=== PATIENT | female | born 1945 | race Caucasian/White ===

== ENCOUNTER → 2016-12-31 | Outpatient (CLI) | payer MEDICARE, BC ==
[~2016-12-31] MED LIST: 3N1 COMMODE MC; ASPI-781 PO; ATOR20TA38 PO; BEN25 PO; CIPR500T4 PO; CLON0.5T4 PO; CPM MC; DIVA250T12 PO; DOCU-144 PO; DULR PR; LAMO25TA PO; LEVO200T6 PO; MIRT30TA5 PO; NA P133E3 PR; OLAN5TAB36 PO; OXYC-481 PO; QUET400T11 PO; QUET50TA22 PO; RANI150T9 PO; TRAM50TA2 PO; UDMOM PO; VALS160T20 PO; WALK1EAC23 MC
--- NOTE | 2016-12-31 11:42 | RADRPT ---
PROCEDURE: XR right knee . CLINICAL INDICATION: Knee pain TECHNIQUE: AP weightbearing, lateral weightbearing and sunrise views are available for review. COMPARISON: 06/18/2016 FINDINGS: There is a total knee replacement. There is no evidence of loosening of the prosthesis. The osseous structures are normal in mineralization, architecture and alignment No acute fracture or dislocation is seen.No osseous lesions are identified. The soft tissues are unremarkable . there is no change i n the small suprapatellar joint effusion IMPRESSION: Unremarkable total knee replacement. Small suprapatellar joint effusion Unchanged from the previous examination RPTAT: [facility] .Alber Matthews MD, MD Date Time Electronically viewed and signed by .Alber Matthews MD, MD on 12/31/2016 11:42 .B/
== END | disposition home or self-care (01) ==
LOC: HKI 10:24
PROVIDERS: ATTEND Orthopaedic Surgery
DX: T84.84XA Pain due to internal orthopedic prosthetic devices, implants and grafts, initial encounter (principal); G89.18 Other acute postprocedural pain; Z96.651 Presence of right artificial knee joint; Z96.641 Presence of right artificial hip joint
CPT/HCPCS: 73562; G0463

== ENCOUNTER → 2017-02-15 | Outpatient (CLI) | payer MEDICARE, BC ==
[~2017-02-15] MED LIST changes: +BISA10SU75 PR; -DULR PR
--- NOTE | 2017-02-15 15:34 | RADRPT ---
PROCEDURE: Three-phase bone scan study CLINICAL INDICATION: 71 -year-old patient with right knee replacement, complaining of right knee p ain. TECHNIQUE: Following the intravenous injection of 24.9 mCi of Tc-99m MDP, a three-phase bone scan study of the knees bilaterally was obtained. COMPARISON: No prior bone scan studies. X-ray of the right knee dated December 31, 2016. FINDINGS: Blood flow phase of the study demonstrates symmetrical distribution of activity in the knees bilater ally. Blood pooling images reveal symmetrical distribution of uptake in both knees. Delayed images of both knees demonstrate evidence of a right knee replacement with mildly increased activity surrounding the prosthesis, which is likely related to prior surgery. Mildly increased uptake is seen in the left knee, which is likely related to degenerative disease. IMPRESSION: 1. Evidence of the right knee replacement with likely postsurgical changes. 2. Likely degenerative changes of the left knee. 3. No other abnormal areas of increased uptake in the obtained limited views of both knees. RPTAT: HH .Ladi Lange MD, MD Date Time Electronically viewed and signed by .Ladi Lange MD, on 02/15/2017 15:34 .L/
== END | disposition home or self-care (01) ==
LOC: NUC 11:07
PROVIDERS: ATTEND Orthopaedic Surgery
DX: T84.84XA Pain due to internal orthopedic prosthetic devices, implants and grafts, initial encounter (principal); Y83.8 Other surgical procedures as the cause of abnormal reaction of the patient, or of later complication, without mention of misadventure at the time of the procedure; Z96.651 Presence of right artificial knee joint
CPT/HCPCS: 78315; A9503